=== PATIENT | female | born 1930 | race Caucasian/White ===

== ENCOUNTER 2016-11-15 10:34 | Inpatient (IN) | payer MEDICARE, OTHER ==
[2016-11-15 10:56] VITALS: BP 176/63
[2016-11-15] MEDS ORDERED: Nitroglycerin 0.4 MG Tab.SL SL PRN (11:23)
[2016-11-15] MEDS ORDERED: Lidocaine 2% 100 MG/5 ML Syringe IVPUSH PRN (11:23)
[2016-11-15] MEDS ORDERED: Atropine 0.1 MG/ML 10 ML Syringe IVPUSH PRN (11:23)
[2016-11-15] MEDS ORDERED: EPINEPHrine 1:10,000 1 MG/10 ML Syringe IVPUSH PRN (11:23)
[2016-11-15] MEDS ORDERED: Furosemide 40 MG/4 ML VIAL IVPUSH SCH (11:30)
[2016-11-15] MEDS: Sodium Chloride 0.9% 5 ML Syringe FLUSH PRN ×2 (11:58→11:59)
[2016-11-15] MEDS ORDERED: Omeprazole 20 MG Cap.CR PO SCH (18:00)
[2016-11-15] MEDS ORDERED: Simvastatin 10 MG Tab PO SCH (21:00)
[2016-11-15] MEDS ORDERED: INSULIN GLARGINE HUM REC ANLOG 12 UNIT SQ SCH (21:00)
[2016-11-15] MEDS ORDERED: metFORMIN 500 MG Tab PO SCH (21:00)
[2016-11-16] MEDS ORDERED: Levothyroxine 112 MCG Tab PO SCH (07:30)
[2016-11-16] MEDS ORDERED: Non-Formulary Medication 1 Each (Hydrochlorothiazide [Hydrochlorothiazide] 12.5 MG) PO SCH (09:00)
[2016-11-16] MEDS ORDERED: Aspirin 81 MG Tab.EC PO SCH (09:00)
[2016-11-16] MEDS ORDERED: amLODIPine 5 MG Tab PO SCH (09:00)
--- NOTE | 2016-11-30 08:19 | DISCH ---
FINAL DIAGNOSES: 1. 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 2. Acute congestive heart failure. 3. Hyperlipidemia. 4. Postsurgical hypothyroidism. HISTORY OF HOSPITALIZATION: This elderly 86-year-old female was admitted to the hospital due to acute congestive heart failure, which was found to have AV block two-to-one in the clinic on 11/15/2016. Chest x-ray did show blunting of the right costophrenic angle and signs of congestive heart failure. BNP was elevated to 475. She had labs obtained which showed a troponin and CK well within normal limits. CMP and CBC were stable. TSH was mildly elevated at 5.78. Due to the acuteness of this congestive heart failure and AV block, she was admitted to the hospital. HOSPITAL COURSE: She was placed on telemetry. The atenolol was to be decreased from 75 to 50 mg daily, and she received IV Lasix 40 mg on admission. It was recommended she would have an echocardiogram. The patient was discussed with Dr. Adrian Macdonald. On discharge, same day of admission, it was found the patient continued to have severe bradycardia in the low 30s for several hours without any change. Due to the acuteness of the shortness of breath and the congestive heart failure, it was decided that she would be transferred to [facility]. One call was notified and spoke with Cardiology and Internal Medicine, and they did accept the patient. Due to the acuteness of her illness and severity of bradycardia, she was transferred via ambulance to [facility]. She was stable on discharge. /[id number]/MODL
== END 2016-11-15 13:35 | DRG 310 ==
LOC: KA.MS 10:34
PROVIDERS: ADMIT Physician Assistant Medical; ATTEND Family Medicine
DX: I44.1 Atrioventricular block, second degree (principal); R00.1 Bradycardia, unspecified; I50.9 Heart failure, unspecified; I10 Essential (primary) hypertension; R06.02 Shortness of breath; E78.2 Mixed hyperlipidemia; E89.0 Postprocedural hypothyroidism; Z79.899 Other long term (current) drug therapy; Z88.8 Allergy status to other drugs, medicaments and biological substances; Z88.2 Allergy status to sulfonamides
CPT/HCPCS: 36415; 84484; J1940

== ENCOUNTER 2017-11-04 09:23 | Emergency (ER) | payer MEDICARE, OTHER ==
[2017-11-04 09:50] VITALS: BP 186/77
[2017-11-04] MEDS ORDERED: Sodium Chloride 0.9% 5 ML Syringe FLUSH PRN (09:52)
[2017-11-04] MEDS ORDERED: Sodium Chloride 0.9% 1,000 ML IV ONE (09:59)
--- NOTE | 2017-11-04 09:59 | EDM.PDOC ---
ED HPI GENERAL MEDICAL PROBLEM - General Chief Complaint: Abdominal Pain Stated Complaint: abdominal pain Time Seen by Provider: 11/04/17 09:40 Source of Information: Reports: Patient History Limitations: Reports: No Limitations - History of Present Illness INITIAL COMMENTS - FREE TEXT/NARRATIVE: 87 YO WF presents to ER complaining of RLQ abdominal pain since 2am. Pt reports pain is constant but waxes and wanes. Pt denies any fever/chills, no radiating pain to back. Pt reports no change in bowel habits, no bloody stools. Pt reports nausea without vomiting. Pt has had a cholecystectomy in the past and thinks she had her appendix removed at the same time but that seems unlikely. Pt denies any dysuria, frequency or urgency. Onset: Today Onset Date: 11/04/17 Onset Time: 02:00 Location: Reports: Abdomen Quality: Reports: Ache Severity: Mild Improves with: Reports: None Worsens with: Reports: None Right Middle Abdomen Pain Score (Numeric/FACES): 6 - Related Data Allergies Allergy/AdvReac Type Severity Reaction Status Date / Time hydrocortisone Allergy Rash Verified 11/04/17 09:51 lisinopril Allergy Cough Verified 11/04/17 09:51 prednisone Allergy Rash Verified 11/04/17 09:51 soap Allergy Rash Verified 11/04/17 09:51 Sulfa (Sulfonamide Allergy Hives Verified 11/04/17 09:51 Antibiotics) valsartan [From Diovan] Allergy Cough Verified 11/04/17 09:51 Home Meds: Home Meds Aspirin [Halfprin] 81 mg PO DAILY 11/15/16 [History] Atenolol 50 mg PO DAILY 11/15/16 [History] Calcium Carbonate [Calcium] 600 mg PO DAILY 11/15/16 [History] Gluc Fortune 2KCl/Chondr/Vit C/Miguel [Glucosamine-Chondr Complex] 1 cap PO DAILY 11/15 [History] Insulin Glargine,Hum.Rec.Anlog [Lantus Solostar] 15 units SQ BEDTIME 11/15/16 [ History] Levothyroxine 112 mcg PO ACBREAKFAST 11/15/16 [History] Multivitamin with Minerals [Multiple Vitamin] 1 tab PO DAILY 11/15/16 [History] Naproxen Sodium [Aleve] 220 mg PO ASDIRECTED PRN 11/15/16 [History] Omeprazole 20 mg PO ACBREAKFAST 11/15/16 [History] Simvastatin [Zocor] 10 mg PO BEDTIME 11/15/16 [History] amLODIPine [Norvasc] 7.5 mg PO DAILY 11/15/16 [History] hydroCHLOROthiazide [Hydrochlorothiazide] 12.5 mg PO DAILY 11/15/16 [History] metFORMIN [Glucophage] 1,000 mg PO BID 11/15/16 [History] Hydrocodone/Acetaminophen [Hydrocodon-Acetaminophen 5-325] 1 each PO Q4HR PRN # 10 tablet 11/04/17 [Rx] Ondansetron [Zofran ODT] 4 mg PO Q6H PRN #6 tab.dis 11/04/17 [Rx] Past Medical History HEENT History: Reports: Cataract, Impaired Vision Other HEENT History: cataracts both eyes Respiratory History: Reports: Bronchitis, Recurrent, Other (See Below) Other Respiratory History: was told she is "near asthmatic" by the provider Gastrointestinal History: Reports: Cholelithiasis, GERD Genitourinary History: Reports: Urinary Incontinence [employer] ENG[employer] History: Reports: Musculoskeletal History: Reports: Arthritis, Back Pain, Chronic, Osteoarthritis Neurological History: Reports: None Endocrine/Metabolic History: Reports: Diabetes, Type II, Hypothyroidism Hematologic History: Reports: Anemia Immunologic History: Reports: None Oncologic (Cancer) History: Reports: None Dermatologic History: Reports: Other (See Below) Other Dermatologic History: hives - Infectious Disease History Infectious Disease History: Reports: Chicken Pox, Helicobacter Pylori, Hepatitis A, Influenza, Measles, Mumps, Pertussis (Whooping Cough) - Past Surgical History HEENT Surgical History: Reports: Cataract Surgery Other HEENT Surgeries/Procedures: cataract surgery both eyes Respiratory Surgical History: Reports: None GI Surgical History: Reports: Appendectomy, Cholecystectomy, Colonoscopy, Polypectomy Female Surgical History: Reports: Breast Biopsy, D&C Endocrine Surgical History: Reports: Other (See Below) Other Endocrine Surgeries/Procedures: drank radioactive iodine to "kill" thyroid gland Musculoskeletal Surgical History: Reports: Arthroscopic Knee, Knee Replacement Social & Family History - Tobacco Use Smoking Status *Q: Never Smoker Second Hand Smoke Exposure: No - Caffeine Use Caffeine Use: Reports: Coffee, Tea - Recreational Drug Use Recreational Drug Use: No ED ROS GENERAL - Review of Systems Review Of Systems: See Below Constitutional: Reports: No Symptoms HEENT: Reports: No Symptoms Respiratory: Reports: No Symptoms Cardiovascular: Reports: No Symptoms Endocrine: Reports: No Symptoms GI/Abdominal: Reports: Abdominal Pain, Nausea : Reports: No Symptoms Musculoskeletal: Reports: No Symptoms Skin: Reports: No Symptoms Neurological: Reports: No Symptoms Psychiatric: Reports: No Symptoms Hematologic/Lymphatic: Reports: No Symptoms Immunologic: Reports: No Symptoms ED EXAM, GI/ABD - Physical Exam Exam: See Below Exam Limited By: No Limitations General Appearance: Alert, WD/WN, No Apparent Distress Throat/Mouth: Normal Inspection, Normal Lips, Normal Teeth, Normal Gums, Normal Oropharynx, Normal Voice, No Airway Compromise Head: Atraumatic, Normocephalic Neck: Normal Inspection, Supple, Non-Tender, Full Range of Motion Respiratory/Chest: No Respiratory Distress, Lungs Clear, Normal Breath Sounds, No Accessory Muscle Use, Chest Non-Tender Cardiovascular: Normal Peripheral Pulses, Regular Rate, Rhythm, No Edema, No Gallop, No JVD, No Murmur, No Rub GI/Abdominal Exam: Normal Bowel Sounds, Soft, No Organomegaly, No Distention, No Abnormal Bruit, No Mass, Pelvis Stable, Tender (RLQ). No: Distended, Guarding, Rigid, Rebound Back Exam: Normal Inspection, Full Range of Motion, NT Extremities: Normal Inspection, Normal Range of Motion, Non-Tender, Normal Capillary Refill, No Pedal Edema Neurological: Alert, Oriented, CN II-XII Intact, Normal Cognition, Normal Gait, Normal Reflexes, No Motor/Sensory Deficits Psychiatric: Normal Affect, Normal Mood Skin Exam: Warm, Dry, Intact, Normal Color, No Rash Lymphatic: No Adenopathy Course - Vital Signs Last Recorded V/S: Last Vital Signs Temp 36.8 C 11/04/17 09:45 Pulse 93 11/04/17 09:45 Resp 18 11/04/17 09:45 BP 186/77 H 11/04/17 09:45 Pulse Ox 96 11/04/17 09:45 - Orders/Labs/Meds Orders: Active Orders 24 hr Category Date Time Status Peripheral IV Care [RC] . DIRECTED Care 11/04/17 09:52 Active Abdomen Pelvis w Cont [CT] Stat Exams 11/04/17 09:59 Taken UA W/MICROSCOPIC [URIN] Stat Lab 11/04/17 11:04 Ordered Sodium Chloride 0.9% [Normal Saline] Med 11/04/17 10:30 Active 50 ml FLUSH ASDIRECTED Sodium Chloride 0.9% [Syrex Flush] Med 11/04/17 09:52 Active 5 ml FLUSH Q8HR PRN Peripheral IV Insertion Adult [OM.PC] Routine Oth 11/04/17 09:52 Ordered Medication Orders Sodium Chloride (Syrex Flush) 5 ml FLUSH Q8HR PRN PRN Reason: Keep Vein Open Sodium Chloride (Normal Saline) 50 ml FLUSH ASDIRECTED JOSESITO Last Admin: 11/04/17 10:44 Dose: 50 ml Labs: Laboratory Tests 11/04/17 11/04/17 11/04/17 Range/Units 09:45 09:45 11:00 WBC 9.41 (5.00-10.00) 10^3/uL RBC 4.75 (3.80-5.50) 10^6/uL Hgb 15.5 (12.0-16.0) g/dL Hct 44.3 (37.0-47.0) % MCV 93.3 H (82.0-92.0) fL MCH 32.6 H (27.0-31.0) pg MCHC 35.0 (32.0-36.0) g/dL RDW 12.3 (11.5-14.5) % Plt Count 287 (150-400) 10^3/uL MPV 10.0 (7.4-10.4) fL Immature Gran % (Auto) 0.4 (0.0-5.0) % Neut % (Auto) 75.5 H (50.0-70.0) % Lymph % (Auto) 19.8 L (20.0-40.0) % [place] % (Auto) 3.9 (2.0-8.0) % Eos % (Auto) 0.1 L (1.0-3.0) % Baso % (Auto) 0.3 (0.0-1.0) % Immature Gran # (Auto) 0.04 (0.00-0.50) 10^3/uL Neut # (Auto) 7.10 H (2.50-7.00) 10^3/uL Lymph # (Auto) 1.86 (1.00-4.00) 10^3/uL [place] # (Auto) 0.37 (0.10-0.80) 10^3/uL Eos # (Auto) 0.01 L (0.10-0.30) 10^3/uL Baso # (Auto) 0.03 (0.00-0.10) 10^3/uL Sodium 140 (136-145) mmol/L Potassium 3.9 (3.3-5.3) mmol/L Chloride 99 (98-115) mmol/L Carbon Dioxide 25.8 (21.0-32.0) mmol/L Anion Gap 19.1 H (5-15) mmol/L BUN 22 (6-25) mg/dL Creatinine 0.80 (0.51-1.17) mg/dL Est Cr Clr Drug Dosing 40.66 mL/min Estimated GFR (MDRD) > 60 mL/min Glucose 259 mg/dL Calcium 9.1 (8.7-10.3) mg/dL Total Bilirubin 0.5 (0.2-1.0) mg/dL AST 20 (15-37) U/L ALT 20 (12-78) U/L Alkaline Phosphatase 74 (46-116) IU/L Total Protein 7.9 (6.4-8.2) g/dL Albumin 3.76 (3.00-4.80) g/dL Lipase 115 (73-393) U/L Urine Color Yellow (YELLOW) Urine Appearance Clear (CLEAR) Urine pH 5.5 (5.0-9.0) Ur Specific [place] <= 1.005 (1.005-1.030) Urine Protein Negative (NEGATIVE) mg/dL Urine Glucose (UA) 500 H (NEGATIVE) mg/dL Urine Ketones Negative (NEGATIVE) mg/dL Urine Occult Blood Moderate H (NEGATIVE) Urine Nitrite Negative (NEGATIVE) Urine Bilirubin Negative (NEGATIVE) Urine Urobilinogen 0.2 (0.2-1.0) E.U./dL Ur Leukocyte Esterase Negative (NEGATIVE) Meds: Medications Generic Name Dose Route Start Last Admin Trade Name Freq PRN Reason Stop Dose Admin Sodium Chloride 5 ml 11/04/17 09:52 Syrex Flush FLUSH Q8HR PRN Keep Vein Open Sodium Chloride 50 ml 11/04/17 10:30 11/04/17 10:44 Normal Saline FLUSH 50 ml ASDIRECTED JOSESITO Administration Discontinued Medications Generic Name Dose Route Start Last Admin Trade Name Freq PRN Reason Stop Dose Admin Sodium Chloride 1,000 mls @ 999 mls/hr 11/04/17 09:59 11/04/17 10:10 Normal Saline IV 11/04/17 10:59 999 mls/hr .BOLUS ONE Administration Iopamidol 75 ml 11/04/17 10:20 11/04/17 10:43 Isovue-300 (61%) IV 11/04/17 10:21 75 ml ONETIME ONE Administration Ketorolac Tromethamine 30 mg 11/04/17 11:04 11/04/17 11:10 Toradol IVPUSH 11/04/17 11:05 30 mg ONETIME ONE Administration - Radiology Interpretation Free Text/Narrative:: CT abd/pelvis- 3mm renal stone in distal ureter; no appendicitis; diverticulosis without diverticulitis Departure - Departure Time of Disposition: 11:19 Disposition: Home, Self-Care 01 Condition: Good Clinical Impression: Renal colic on right side, Kidney stone on right side - Discharge Information Prescriptions: Hydrocodone/Acetaminophen [Hydrocodon-Acetaminophen 5-325] 1 each PO Q4HR PRN # 10 tablet PRN Reason: Pain Ondansetron [Zofran ODT] 4 mg PO Q6H PRN #6 tab.dis PRN Reason: Nausea/Vomiting Instructions: Kidney Stones Referrals: Pratima Uribe PA-C [Primary Care Provider] - Forms: ED Department Discharge Additional Instructions: 1. Discharge home 2. hydrocodone 5/325 #10 Si-2 Q4-6 PRN pain 3. zofran ODT 4mg #6 Si PO Q6 PRN nausea 4. follow up with PCP for further evaluation and management 5. return to ER for worsening symptoms - My Orders Last 24 Hours: My Active Orders 11/04/17 09:52 Peripheral IV Care [RC] . DIRECTED Sodium Chloride 0.9% [Syrex Flush] 5 ml FLUSH Q8HR PRN Peripheral IV Insertion Adult [OM.PC] Routine 11/04/17 09:59 Abdomen Pelvis w Cont [CT] Stat 11/04/17 10:30 Sodium Chloride 0.9% [Normal Saline] 50 ml FLUSH ASDIRECTED 11/04/17 11:04 UA W/MICROSCOPIC [URIN] Stat - Assessment/Plan Last 24 Hours: My Active Orders 11/04/17 09:52 Peripheral IV Care [RC] . DIRECTED Sodium Chloride 0.9% [Syrex Flush] 5 ml FLUSH Q8HR PRN Peripheral IV Insertion Adult [OM.PC] Routine 11/04/17 09:59 Abdomen Pelvis w Cont [CT] Stat 11/04/17 10:30 Sodium Chloride 0.9% [Normal Saline] 50 ml FLUSH ASDIRECTED 11/04/17 11:04 UA W/MICROSCOPIC [URIN] Stat Assessment:: 1. RLQ abdominal pain 2. Renal colic 3. 3mm renal stone in distal ureter on right Plan: 1. Discharge home 2. hydrocodone 5/325 #10 Si-2 Q4-6 PRN pain 3. zofran ODT 4mg #6 Si PO Q6 PRN nausea 4. follow up with PCP for further evaluation and management 5. return to ER for worsening symptoms
[2017-11-04 10:11] LABS: ANION GAP 19.1 mmol/L (5-15); CHLORIDE,CL 99 mmol/L (98-115); SODIUM,NA 140 mmol/L (136-145)
[2017-11-04] MEDS ORDERED: Iopamidol 612 MG/ML 75 ML Bottle IV ONE (10:20)
[2017-11-04] MEDS ORDERED: Sodium Chloride 0.9% 50 ML SDV FLUSH SCH (10:30)
[2017-11-04] MEDS ORDERED: Ketorolac 30 MG/ML SDV IVPUSH ONE (11:04)
== END 2017-11-04 11:30 | disposition home or self-care (01) ==
LOC: KA.ED 09:23
DX: N20.2 Calculus of kidney with calculus of ureter (principal); Z88.2 Allergy status to sulfonamides; E11.9 Type 2 diabetes mellitus without complications; Z91.09 Other allergy status, other than to drugs and biological substances; Z79.82 Long term (current) use of aspirin; Z79.4 Long term (current) use of insulin; Z79.84 Long term (current) use of oral hypoglycemic drugs; Z88.8 Allergy status to other drugs, medicaments and biological substances
CPT/HCPCS: 36415; 74177; 80053; 81001; 83690; 85025; 96361; 96374; 99284; J1885; J7030; Q9967